=== PATIENT | male | born 1995 | race Caucasian/White ===

== ENCOUNTER 2022-10-24 07:26 | Emergency (ER) | payer SELFPAY ==
[~2022-10-24] VITALS: Ht 175.3 cm; Wt 81.2 kg
--- NOTE | 2022-10-24 07:30 | NUR ---
TO BED AMBULATORY, BIBA FOR ETOH.
[2022-10-24 07:36] VITALS: BP 136/99
--- NOTE | 2022-10-24 07:39 | NUR ---
DR CARROLL AT BEDSIDE EVALUATING PT
[2022-10-24 07:45] VITALS: BP 136/99
--- NOTE | 2022-10-24 07:45 | NUR ---
Patient discharged with v/s stable. Written and verbal after care instructions given and explained. Patient verbalized understanding. Ambulatory with steady gait. All questions addressed prior to discharge. Advised to follow up with PMD.
== END 2022-10-24 07:45 | disposition home or self-care (01) ==
LOC: MED 07:26
DX: F10.129 Alcohol abuse with intoxication, unspecified (principal); Y90.9 Presence of alcohol in blood, level not specified
CPT/HCPCS: 99283